=== PATIENT | male | born 1950 | race Caucasian/White ===

== ENCOUNTER → 2017-04-26 | Outpatient (CLI) | payer MEDICARE | LOC: M.ULTRA 12:30 | DX: I73.9 Peripheral vascular disease, unspecified (principal) ==

== ENCOUNTER 2019-11-24 15:36 | Emergency (ER) | payer MEDICARE ==
[~2019-11-24] VITALS: Ht 170.2 cm; Wt 77.1 kg
[2019-11-24] MEDS ORDERED: NORVASC 2.5 MG2.5 M1 PO (16:09)
[2019-11-24 16:13] LABS: HEMATOCRIT 38.4 % (42.0-52.0); HEMOGLOBIN 12.9 gm/dL (14.0-18.0); MCH 30.7 pg (26.0-34.0); MCHC 33.5 g/dL (28.0-37.0); MCV 91.5 fL (80.0-100.0); MPV 7.3 fl. (7.2-11.1); NUCLEATED RBCS 0 /100WBC; PLATELET COUNT* 478 thou/uL (150-400); RBC 4.19 mil/uL (4.50-6.00); RDW-CV 13.4 % (10.5-14.5); WBC 15.1 thou/uL (4.0-11.0)
[2019-11-24 16:22] LABS: CALCIUM 8.8 mg/dL (8.5-10.1); POTASSIUM 3.6 mmol/L (3.5-5.1)
[2019-11-24 16:27] LABS: ALBUMIN 2.1 g/dL (3.4-5.0); TOTAL BILIRUBIN 0.4 mg/dL (<0.1-1.0); TOTAL PROTEIN 7.4 g/dL (6.4-8.2)
[2019-11-24 16:37] LABS: ABSOLUTE LYMPHOCYTES 0.9 thou/uL (0.8-5.3); ABSOLUTE MONOCYTES 0.5 thou/uL (0.0-1.2); ABSOLUTE NEUTROPHILS 13.7 thou/uL (1.6-8.1); PLATELET ESTIMATE INCREASED
[2019-11-24] MEDS ORDERED: PREDNISONE 20 M20 M1 PO (17:59)
[2019-11-24] MEDS ORDERED: LEVAQUIN 500 M500 M2 PO (17:59)
[2019-11-24] MEDS ORDERED: VENTOLIN HFA 1818 GM INH (17:59)
[2019-11-24 18:17] VITALS: BP 121/80
--- NOTE | 2019-11-26 09:53 | EKG ---
[place] [address] ELECTROCARDIOGRAM REPORT Name: DUSTIN CUELLO Room: [facility]#: [id number] Admission: 11/24/19 Attend Phys: Discharge: 11/24/19 Date of : 52 Date of Service: 11/24/19 1554 Report #: [id number] THIS REPORT FOR: //name// [facility] ED Test Date: 2019-11-24 Test Time: 15:54:47 Pat Name: DUSTIN CUELLO Department: Room: Gender: [employer] Work[employer]: [employer] [facility] : 1950 Requested By: Constance Lopez Order Number: [id number] Shilpi MD: Jim Preciado Measurements Intervals [place] Rate: 70 P: 54 W[place]: 129 QRS: -6 QRSD: 96 T: 27 QT: 379 QTc: 409 Interpretive Statements Sinus rhythm Atrial premature complex Baseline wander in lead(s) I,II,aVR No previous ECG available for comparison Electronically Signed On 11-26-2019 9:53:20 CDT by Jim Preciado [email or web address] <ELECTRONICALLY SIGNED> By: Jim Preciado MD, [facility] 11/26/19 0953 1554 1554 Jim Preciado MD, [facility] /EPI
== END 2019-11-24 18:18 | disposition home or self-care (01) ==
LOC: M.ERS 15:36
PROVIDERS: Family Medicine
DX: J18.1 Lobar pneumonia, unspecified organism (principal); J98.8 Other specified respiratory disorders; I10 Essential (primary) hypertension; Z20.828 Contact with and (suspected) exposure to other viral communicable diseases

== ENCOUNTER → 2019-12-06 | Outpatient (CLI) | payer MEDICARE ==
[~2019-12-06] MED LIST: LEVAQUIN 500 M500 M2 PO; NORVASC 2.5 MG2.5 M1 PO; PREDNISONE 20 M20 M1 PO; VENTOLIN HFA 1818 GM INH
== END ==
LOC: M.CT 12:00
PROVIDERS: ATTEND Family Medicine
DX: J90 Pleural effusion, not elsewhere classified (principal); I25.10 Atherosclerotic heart disease of native coronary artery without angina pectoris; R06.89 Other abnormalities of breathing